=== PATIENT | male | born 1975 | race Caucasian/White ===

== ENCOUNTER 2017-06-30 21:11 | Emergency (ER) | payer OTHER ==
[2017-06-30 21:27] VITALS: BP 163/111
[2017-06-30] MEDS ORDERED: Bacitracin Oint 1 GM U/D Packet TOP ONE (21:40)
[2017-06-30] MEDS ORDERED: Diphtheria,Pertussis(Acell),Tetanus Vaccine 0.5 ML SDV IM ONE (21:40)
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
== END 2017-06-30 23:07 | disposition home or self-care (01) ==
LOC: JP.ED 21:11
DX: S81.811A Laceration without foreign body, right lower leg, initial encounter (principal); Z23 Encounter for immunization; V90.0 Drowning and submersion due to watercraft overturning; Y92.828 Other wilderness area as the place of occurrence of the external cause
CPT/HCPCS: 12004; 90471; 90715; 99283-25